=== PATIENT | male | born 1950 | race Caucasian/White ===

== ENCOUNTER 2016-04-07 18:42 | Emergency (ER) | payer OTHER, MEDICARE ==
[~2016-04-07 18:42] MED LIST: ABILIFY 5MG5 MG PO; ADVIL200 MG PO; ALBUTEROL SULFAT3 M1 INH; ANTIBIOTIC O500 U/GM TOP; ASPIR 8181 MG PO; ATIVAN0.5 MG PO; ATIVAN1 MG PO; BENADRYL ALLERG25 M1 PO; DEPAKENE 2250 MG/5 M PO; DEPAKOTE ER 25250 MG PO; DEPAKOTE SPRIN125 MG PO; DEPAKOTE250 MG PO; DEPAKOTE500 MG PO; DULCOLAX10 MG PR; FERRO-TIME325 MG PO; FLEET ENEMA 131 UNIT RC; FLOMAX(MONOGRA0.4 MG PO; FLONASE120 SPRAY/ NASB; GENERLAC10 GM/15 M PO; LAMICTAL 100MG100 MG PO; LAMICTAL 25MG T25 MG PO; LAMICTAL200 MG PO; LEVAQUIN500 MG PO; LIORESAL 10MG T10 MG PO; LOVENOX 4040 MG/0.4 SC; MELATONIN PO; MELATONIN3 MG PO; MILK OF MAGNESI30 ML PO; MINERAL OIL 1 ML1 ML OTIC; MORPHINE10 MG/ML IV; MULTI VITAMINS1 TAB PO; NEXIUM 40MG40 MG PO; OMEPRAZOLE40 MG PO; PERIDEX 480 ML480 ML PO; PROTEIN1 PDR PO; PULMICORT0.5 MG/2 M INH/SOL; RITE AID MELATON1 MG PO; ROBITUSSIN COU237 ML PO; ROXICODONE5 MG PO; SALINE 45 ML45 M1 NASB; SALINE 90 ML90 ML NASB; SENOKOT S 50 MG1 TAB PO; SEROQUEL (MONO200 MG PO; SEROQUEL 100MG100 MG PO; SODIUM CHLORIDE1 GM PO; SUDAFED CONGEST30 MG PO; SYNTHROID0.088 MG PO; Senokot S PO; THICK-IT1 POW PO; TRAZODONE100 MG PO; TRICOR 48MG48 MG PO; TUSSIN100 MG/5 M PO; TYLENOL TAB 32325 MG PO; TYLENOL XSTR500 MG PO; WHEY PROTEIN PO; ZETIA10 MG PO; Zetia PO; [UNRECOGNIZED DRUG - MIXTURE] PO
[2016-04-07 18:55] VITALS: BP 135/86
--- NOTE | 2016-04-07 19:12 | ED INFLUENZA/URI COMPLAINT ---
History of Present Illness General Chief Complaint: General Adult Stated Complaint: PT BREATHING PROBLEM ,HEAD COLD Source: patient, old records, DIRECTOR OF MARKET INTELLIGENCE Exam Limitations: SEVERE MR Vital Signs & Intake/Output Vital Signs & Intake/Output Vital Signs Date Time Temp Pulse Resp B/P Pulse O2 O2 Flow FiO2 Ox Delivery Rate 04/07 1855 97.7 80 16 135/86 95 Room Air ED Intake and Output 04/08 0000 04/07 1200 Intake Total Output Total Balance Patient 170 lb Weight Allergies Coded Allergies: meperidine (From DEMEROL) (UNKNOWN 04/07/16) Reconcile Medications Acetaminophen (Tylenol Xstr) 500 MG TAB 1,000 MG PO Q8H PAIN (Reported) Albuterol Sulfate 3 ML NEB 3 ML INH PRN COUGH/WHEEZE (Reported) Aripiprazole (Abilify) 5 MG TAB 5 MG PO DAILY mental health Aspirin (Ecotrin) 81 MG TABLET.DR 1 TAB PO DAILY HEART HEALTH (Reported) Azithromycin (Zithromax) 250 MG TABLET 1 DP PO AD BRONCHITIS 2 the first day followed by 1 for days 2-5 Azithromycin (Zithromax) 250 MG TABLET 1 DP PO AD BRONCHITIS 2 the first day followed by 1 for days 2-5 Bacitracin 500 U/GM OIN 1 GÓMEZ TOP 4 TIMES/DAY PRN MINOR CUTS/ABRASIONS/ BLISTERS (Reported) apply to affected area(s) Bisacodyl (Dulcolax) 10 MG SUP 1 SUP OR AD CONSTIPATION (Reported) Budesonide (Pulmicort) 0.5 MG/2 ML LAURA 1 Vial INH/SAMIR BID RESPIRATORY ( Reported) Chlorhexidine Gluconate (Peridex 480 Ml) (Unknown Strength) LIQ (Unknown Dose) PO BID TEETH-FOLLOWING SENSODYNE (Reported) Dextromethorphan Hydrobromid (Robitussin Cough Dm 10 MG/5 Ml-100 MG/5 Ml 23) 237 ML SAMIR 10 ML PO Q4H PRN COUGH (Reported) DIPHENHYDRAMINE HCL (Benadryl) 25 MG SGL 1 CAP PO Q6H PRN ITCHING/RASHES/ REDNESS/PSN JOSE (Reported) DIPHENHYDRAMINE HCL (Benadryl) 25 MG SGL 1 CAP PO Q6H PRN UNKNOWN (Reported) Divalproex Sodium (Depakote) 250 MG TCP 250 MG PO BID mental health Enoxaparin Sodium (Lovenox 40MG/0.4ML) 40 MG/0.4 ML SYR 0.4 ML SC DAILY DVT PPX STARTED ON 11/11/14, TO TAKE FOR A TOTAL OF 3 WEEKS Esomeprazole (Nexium) 40 MG CAPSULE.DR 1 CAP PO DAILY GI (Reported) Ezetimibe (Zetia) 10 MG TAB 10 MG PO DAILY CHOLESTEROL (Reported) Fenofibrate (Tricor 48MG) 48 MG TABLET 1 TAB PO DAILY TRIGLYCERIDES (Reported ) Ferrous Sulfate 325 MG (65 MG IRON) TABLET 325 MG PO BID SUPPLEMENT (Reported ) Fleet Enema (Fleet Enema 135 Ml) 1 UNIT LIQ 1 E RC AD CONSTIPATION (Reported) Fluticasone Propionate (Flonase) 120 SPRAY/BOT SPR 2 SPRAY NASB DAILY NOSE ( Reported) Guaifenesin (Tussin) 100 MG/5 ML SYR 10 ML PO Q4H PRN COUGH (Reported) Lactulose (Generlac) 10 GRAM/15 ML SOLUTION 30 ML PO BID PRN constipation ( Reported) Lamotrigine (Lamictal 25MG Tab (Chewable)) 25 MG TAB 25 MG PO DAILY mental health titrat up as needed Levofloxacin (Levaquin) 500 MG TAB 1 TAB PO QDAY BRONCHITIS Levothyroxine Sodium (Synthroid) 0.088 MG TAB 0.088 MG PO DAILY AC THYROID ( Reported) Lorazepam (Ativan) 1 MG TAB 1 MG PO AT BEDTIME AGIATION (Reported) Lorazepam (Ativan) 0.5 MG TAB 1 TAB PO BID UNKNOWN (Reported) Magnesium Hydroxide (Milk Of Magnesia 30ML) 30 ML UDC 30 ML PO PRN NO BM AFTER 3 DAYS (Reported) Melatonin 3 MG TAB 1 TAB PO QHS SLEEP (Reported) Mineral Oil (Mineral Oil 1 Ml) 1 ML OIL 5 DROP OTIC QWED BOTH EARS (Reported) Multivitamin (One Daily Multivitamin) 1 EACH TABLET 1 TAB PO DAILY SUPPLEMENT (Reported) Omeprazole 40 MG ECC 1 CAP PO DAILY GI (Reported) OXYCODONE HCL (Roxicodone) 5 MG TAB 5 MG PO TID pain hold for sedation/low BP/respiratory depression Potassium Nitrate/Sodium Flu (Sensodyne 5%-0.15%) (Unknown Strength) PAS 1 GÓMEZ PO BID TEETH (Reported) PROTEIN SUPPLEMENT (Protein Powder) 1 PDR PDR 1 POW PO PRN SUPPLEMENT ( Reported) Pseudoephedrine Hydrochlorid (Sudafed Congestion) 30 MG TAB 1 TAB PO DAILY PRN CONGESTION (Reported) Quetiapine Fumarate (Seroquel) 100 MG TAB 1 TAB PO QAM UNKNOWN (Reported) Quetiapine Fumarate (Seroquel) 200 MG TAB 1 TAB PO QPM UNKNOWN (Reported) SENNOSIDES/DOCUSATE SODIUM (Senokot-S Tablet) 50 MG/8.6 MG TAB 2 TAB PO DAILY PRN GI (Reported) SENNOSIDES/DOCUSATE SODIUM (Senokot-S Tablet) 50 MG/8.6 MG TAB 2 TAB PO DAILY PRN CONSIPATION (Reported) Sodium Chloride 1 GRAM TABLET 500 MG PO DAILY SUPPLEMENT (Reported) Sodium Chloride (Saline 90 Ml) 90 ML SPR 2 SPRAY NASB 4 TIMES/DAY PRN NOSE ( Reported) STARCH (Thick-It) (Unknown Strength) POW 1 TBSP PO AD THICKENING AGENT ( Reported) Tamsulosin Hydrochloride (Flomax) 0.4 MG CAP.ER.24H 1 CAP PO DAILY PROSTATE ( Reported) TRAZODONE HCL (Trazodone HCl) 100 MG TAB 1 TAB PO QHS UNKNOWN (Reported) Triage Note: TRIAGE: TO ED C/C "HEAD COLD" PER PT AID. STATES STAFF NURSE NOTICED SOME WHEEZING AND DIFF BREATHING TODAY. RESPIRATIONS EVEN AND UNLABORED IN TRIAGE, 02 SAT 95% RA. NON-VERBAL AT BASELINE, HX SEVERE MR. AID REPORTS LETHARGY AND POOR PO INTAKE. Triage Nurses Notes Reviewed? 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 The visiting nurse came today however and states that he was wheezing and more lethargic than normal. On arrival patient presents with a launching pad mechanic who states that he's been at his baseline for her there is been no sputum production no hemoptysis no fever no chills. He has an order for breathing treatments when necessary however they have not needed to give him any. They otherwise state he's been acting normal there's been no change in his diet. (JORGITO DEJESUS) Past History Travel History Traveled to [place] past 21 day No (U) Medical History Any Pertinent Medical History? see below for history Neurological: SEVERE M.R. EENT: sinusitis Cardiovascular: hyperlipidemia Respiratory: pneumonia Gastrointestinal: constipation, DYSPHAGIA Hepatic: NONE Renal: URINARY INCONTINENCE Musculoskeletal: LEFT LEG FRACTURE ARTHRITIS ATAXIA Psychiatric: bipolar disease, schizo affective disorder Endocrine: hypothyroidism, GOITER Blood Disorders: anemia Cancer(s): NONE History of MRSA: No History of VRE: No History of CDIFF: No Tetanus Vaccine: 08/09/13 Surgical History Surgical History: non-contributory Psychosocial History Who do you live with Paid Attentent Services at Home Nursing What is your primary language Ivorian Tobacco Use: Never used ETOH Use: denies use Illicit Drug Use: denies illicit drug use Family History Hx Contributory? No (JORGITO DEJESUS) Review of Systems Review of Systems Constitutional: Reports: see HPI. All Other Systems: Reviewed and Negative Comments Review of systems: See HPI, OBTAINED VIA DIRECTOR OF MARKET INTELLIGENCE All other systems negative. Constitutional, no chills no fever, no malaise HEENT: No visual changes no sore throat no congestion Cardiovascular: No chest pain , no palpitation Skin, no rashes, no change in skin Respiratory: No dyspnea cough no sputum no hemoptysis GI: No nausea no vomiting, no diarrhea, no bloating/constipation : No dysuria Muscle skeletal: No joint pain, no joint swelling, no back pain, no neck pain, Neurologic: no headache Psych: No stress Heme/endocrine: No bruising no bleeding Immunology: No lymphadenopathy (JORGITO DEJESUS) Physical Exam Physical Exam General Appearance: well developed/nourished, no apparent distress, awake Ears, Nose, Throat: normal ENT inspection, moist mucous membrane, hearing grossly normal Comments: Well-developed well-nourished person in no acute distress Head/Face: Atraumatic, no maxillary/frontal sinus tenderness, no facial swelling Eyes: PERRL, EOMI, no conjunctival injection. No nystagmus Ear:External auditory canal and Tympanic membranes clear, no erythema, no FB. Nose: atraumatic.Normal inspection: No bleeding, Throat: Moist mucous membranes.Pharynx normal. No pharyngeal erythema/exudate seen. No stridor/drooling or assymetry. No swelling or edema. Neck: Supple, no lymphadenopathy, FROM Back: Nontender, no CVA tenderness. Full range of motion Cardiovascular: Regular rate and rhythms no murmurs rubs Respiratory: No respiratory distress. Patient speaking in full complete sentences. Breath sounds clear to auscultation bilaterally: NO W/R/R Abdomen: Soft, nontender nondistended, Extremity: No edema, full range of motion of extremities Neuro: Alert oriented x3, motor sensory normal. There were no obvious focal neurologic abnormalities. Skin: No appreciable rash on exposed skin, skin is warm and dry. Psych: Mood and affect is normal, memory and judgment is normal. Core Measures Severe Sepsis Present: No Septic Shock Present: No (JOAN CHAMBERLAIN,JORGITO) Progress Differential Diagnosis: influenza, pneumonia, pharyngitis, sinusitis, BRONCHITIS Plan of Care: XRAY ORDEREE, patient appears in no apparent distress lungs are clear to auscultation bilaterally Discussed with the launching pad mechanic his x-ray results prescription for azithromycin was called into his pharmacy plan Diagnostic Imaging: Viewed by Me: Radiology Read. Discussed w/RAD: Radiology Read. Radiology Impression: PATIENT: JOSE COLLADO PRESENT AGE: 65 PATIENT ACCOUNT NO: [id number] : 50 LOCATION: [facility] ORDERING PHYSICIAN: JORGITO CHAMBERLAIN SERVICE DATE: 04/07/16 EXAM TYPE: RAD - XRY- PORTABLE CHEST XRAY EXAMINATION: XR PORTABLE CHEST CLINICAL INFORMATION: Cough. COMPARISON: Chest x-ray 04/07/2016 TECHNIQUE: Portable AP view of the chest was obtained. 8:02 PM FINDINGS: The chin overlies lung apex. Lung volume is low with elevated diaphragms. Chest wall soft tissues overlie the left lung base. No focal consolidation. No pulmonary vascular congestion. IMPRESSION: Exam is limited. No acute change of the chest. DICTATED BY: HENRIK HANNON MD DATE/TIME DICTATED:04/07/162052 TOBACCO CURER:ANN DATE/TIME TRANSCRIBED:2052 CONFIDENTIAL, DO NOT COPY WITHOUT APPROPRIATE AUTHORIZATION. < Electronically signed in Other Vendor System> SIGNED BY: HENRIK HANNON MD 2057 Initial ED EKG: none (JOAN CHAMBERLAIN,JORGITO) Departure Departure Time of Disposition: 2118 Disposition: HOME OR SELF CARE Condition: Stable Clinical Impression Primary Impression: Bronchitis Referrals: SHENA SALDANA,MARIALUISA Washburn (PCP/Family) Additional Instructions: Follow-up with his primary care physician this week. Benjamín-Patrick as directed return with any concerns Departure Forms: Customer Survey General Discharge Information Prescriptions: Current Visit Scripts Azithromycin (Zithromax) 1 DP PO AD #6 TAB 2 the first day followed by 1 for days 2-5 Azithromycin (Zithromax) 1 DP PO AD #6 TAB 2 the first day followed by 1 for days 2-5 (JORGITO DEJESUS) PA/LOOM OVERHAULER Co-Sign Statement Statement: ED Attending supervision documentation- x I saw and evaluated the patient. I have also reviewed all the pertinent lab results and diagnostic results. I agree with the findings and the plan of care as documented in the PA's/LOOM OVERHAULER's documentation. [] I have reviewed the ED Record and agree with the PA's/LOOM OVERHAULER's documentation. [] Additions or exceptions (if any) to the PAs/LOOM OVERHAULER's note and plan are summarized below: [] (TYLER SALDANA,TISHA)
--- NOTE | 2016-04-07 20:58 | RADIOLOGY REPORT ---
EXAMINATION: XR PORTABLE CHEST CLINICAL INFORMATION: Cough. COMPARISON: Chest x-ray 04/07/2016 TECHNIQUE: Portable AP view of the chest was obtained. 8:02 PM FINDINGS: The chin overlies lung apex. Lung volume is low with elevated diaphragms. Chest wall soft tissues overlie the left lung base. No focal consolidation. No pulmonary vascular congestion. IMPRESSION: Exam is limited. No acute change of the chest.
[2016-04-07] MEDS ORDERED: ZITHROMAX250 M2 PO ×2 (21:20→21:28)
== END 2016-04-07 21:33 ==
LOC: ERH 18:42
DX: J40 Bronchitis, not specified as acute or chronic (principal)